=== PATIENT | male | born 1955 | race Caucasian/White ===

== ENCOUNTER 2020-09-15 11:42 | Day surgery (SDC) | payer BC ==
[~2020-09-15] VITALS: Ht 170.2 cm; Wt 79.8 kg
[~2020-09-15 11:42] MED LIST: LIPITOR 10MG10 MG PO; PROCARDIA XL 6060 MG PO
[2020-09-15 13:20] VITALS: BP 151/92; PULSE 67; TEMP 97.9
[2020-09-15] MEDS ORDERED: NORCO 325 MG-51 TAB PO (16:20)
[2020-09-15 16:50] VITALS: BP 129/73; PULSE 67; TEMP 98
--- NOTE | 2020-09-15 16:50 | NUR ---
PATIENT TRANSPORTED PER CART FROM PACU TO BAY 6 ACCOMPANIED BY INSURANCE BILLER. MONITORS APPLIED. VSS ON ROOM AIR. PATIENT STATES ALITTLE SORE. IN ROOM.
[2020-09-15 17:00] VITALS: BP 135/68; PULSE 69
--- NOTE | 2020-09-15 17:00 | NUR ---
VSS ON ROOM AIR. PATIENT EATS MUFFIN AND DRINKS JUICE WITHOUT PROBLEMS. PATIENT TALKS WITH . DENIES NAUSEA AND INCREASED DISCOMFORT.
[2020-09-15 17:15] VITALS: BP 134/80; PULSE 65
--- NOTE | 2020-09-15 17:20 | NUR ---
VSS ON ROOM AIR. PATIENT AMBULATED TO RESTROOM WITH STEADY GAIT. VOIDS WITHOUT PROBLEMS. DENIES INCREASE IN DISCOMFORT.
[2020-09-15 17:30] VITALS: BP 135/82; PULSE 71
--- NOTE | 2020-09-15 17:33 | NUR ---
VSS ON ROOM AIR. PATIENT TALKS WITH STAFF. IV DC'D WITH CATHETER TIP INTACT. PRESSURE AND BANDAGE APPLIED. 1739 DISCHARGE INSTRUCTIONS GIVEN VERBAL AND DISCHARGE PACKET GIVEN TO PATIENT'S . QUESITONS ANSWERED AND PATIENT VOICED UNDERSTANDING. INSTRUCTED TO CALL DR OFFICE TOMORROW TO SCHEDULE FOLLOWUP APPOINTMENT. PRESCRIPTION WAS SENT ELECTRONIC TO PATIENT'S PHARMACY. PATIENT CHANGES INTO STREET CLOTHES. 1744 PATIENT DISCHARGED PER WHEEL CHAIR ACCOMPANIED BY JAIRO RN TO PRIVATE CAR DRIVEN BY .
== END 2020-09-15 17:45 | disposition home or self-care (01) ==
LOC: SDCO 11:42
DX: K40.31 Unilateral inguinal hernia, with obstruction, without gangrene, recurrent (principal); I10 Essential (primary) hypertension; E78.5 Hyperlipidemia, unspecified; E78.00 Pure hypercholesterolemia, unspecified; Z79.899 Other long term (current) drug therapy; Z20.822 Contact with and (suspected) exposure to COVID-19
CPT/HCPCS: C1781; J0690; J1100; J1885; J2405; J2704; J3010; J7120

== ENCOUNTER → 2023-03-24 | Outpatient (CLI) | payer BC ==
[~2023-03-24] MED LIST changes: +NORCO 325 MG-51 TAB PO
== END ==
LOC: COL.RAD 08:25
DX: K40.90 Unilateral inguinal hernia, without obstruction or gangrene, not specified as recurrent (principal)